=== PATIENT | male | born 1965 | race Caucasian/White ===

== ENCOUNTER 2024-03-13 17:30 | Inpatient (IN) | payer MEDICARE, OTHER ==
[~2024-03-13] VITALS: Ht 190.5 cm; Wt 77.4 kg
[~2024-03-13 17:30] MED LIST: AMLO5 PO
[2024-03-13 18:32] LABS: BASOPHILS ABSOLUTE AUTO 0.06 K/mm3 (0.00-0.23); BASOPHILS PERCENT AUTO 1 % (0-2); EOSINOPHILS PERCENT AUTO 2 % (0-6); Hematocrit 42.3 % (37.0-53.0); Hemoglobin 14.5 g/dL (13.5-17.5); IMMATURE GRAN ABSOLUTE AUTO 0.05 K/mm3 (0.00-0.10); IMMATURE GRAN PERCENT AUTO 1 % (0-1); LYMPHOCYTES ABSOLUTE AUTO 1.24 K/mm3 (0.84-5.20); LYMPHOCYTES PERCENT AUTO 13 % (21-46); MONOCYTES ABSOLUTE AUTO 0.65 K/mm3 (0.16-1.47); MONOCYTES PERCENT AUTO 7 % (4-13); Mean Corpuscular HGB 29.9 pg (26.0-34.0); Mean Corpuscular HGB Conc 34.3 g/dL (31.5-36.5); Mean Corpuscular Volume 87 fL (80-100); Mean Platelet Volume 8.9 fL (9.1-12.4); NEUTROPHILS PERCENT AUTO 77 % (41-73); Platelet Count 252 K/mm3 (150-400); RDW Coefficient Variation 13.7 % (11.7-14.2); RDW Standard Deviation 43.8 fL (35.1-46.3); Red Blood Cell Count 4.85 M/mm3 (4.30-5.90)
[2024-03-13 18:58] LABS: Albumin, Blood 3.5 g/dL (3.4-5.0); Albumin/Globulin Ratio 0.8 (0.8-1.8); Bilirubin, Total 0.4 mg/dL (0.1-1.0); Bun/Creatinine Ratio 31.9 (12.0-20.0); Calcium, Blood 9.1 mg/dL (8.5-10.1); Creatinine, Blood 1.35 mg/dL (0.60-1.20); Globulin, Blood 4.2 g/dL (2.2-4.0); Potassium, Blood 3.5 mmol/L (3.5-5.5); Total Protein, Blood 7.7 g/dL (6.4-8.2)
[2024-03-13] MEDS ORDERED: HydrALAZINE HCl 20 MG / ML 1ML Vial IV ONE (20:20)
[2024-03-13] MEDS ORDERED: Labetalol HCL 5 MG/ML 4ML Injection (Single Dose) IV PRN (21:25)
[2024-03-13] MEDS ORDERED: FLU VACC TS2024-25(6MOS UP)/PF 45 MCG/0.5 ML SYRINGE IM SCH (21:25)
[2024-03-13] MEDS ORDERED: HydrALAZINE HCl 20 MG / ML 1ML Vial IV PRN (21:30)
[2024-03-13] MEDS ORDERED: Aspirin 325 MG Tab PO ONE (22:00)
[2024-03-13] MEDS ORDERED: Lisinopril 5 MG Tab PO ONE (22:00)
[2024-03-13] MEDS ORDERED: AmLODIPine Besylate 5 MG Tab PO SCH (22:00)
[2024-03-13 22:42] VITALS: BP 146/108
[2024-03-13 23:14] VITALS: BP 156/122
[2024-03-14] VITALS (28 sets, daily range): BP systolic 145–186; BP diastolic 99–135
[2024-03-14 01:08] LABS: Source, Urine Clean Catch
[2024-03-14 01:23] LABS: Appearance, Urine Clear (Clear); Bilirubin, Urine Neg (Neg); Blood, Urine 2+ (Neg); Color, Urine Yellow (P-Yellow); Glucose Qualitative, Urine Neg (Neg); Ketones, Urine Neg (Neg); Leukocyte Esterase, Urine Neg (Neg); Nitrite, Urine Neg (Neg); Protein, Urine 3+ (Neg); Urobilinogen, Urine NORM (Normal)
[2024-03-14 01:36] LABS: U Amphetamine Screen Not Detected; U Barbituate Screen Not Detected; U Benzodiazapine Screen Not Detected; U Buprenorphine Screen Not Detected; U Cannabinoids Screen DETECTED; U Cocaine Screen Not Detected; U Methadone Screen Not Detected; U Methamphetamine Screen Not Detected; U Opiates Screen Not Detected; U Oxycodone Screen Not Detected; U Phencyclidine Screen Not Detected
[2024-03-14 01:52] LABS: Bacteria Not Seen /hpf; Squamous Epithelial Cells Not Seen /hpf (Few); White Blood Cells, Urine Not Seen /hpf (0-5)
[2024-03-14] MEDS ORDERED: AmLODIPine Besylate 5 MG Tab PO ONE (05:00)
[2024-03-14] MEDS ORDERED: Acetaminophen 325 MG TABLET PO PRN (05:15)
[2024-03-14 07:55] LABS: Bun/Creatinine Ratio 28.4 (12.0-20.0); Calcium, Blood 9.1 mg/dL (8.5-10.1); Creatinine, Blood 1.09 mg/dL (0.60-1.20); Potassium, Blood 3.2 mmol/L (3.5-5.5)
[2024-03-14] MEDS ORDERED: Lisinopril 5 MG Tab PO SCH (09:00)
[2024-03-14] MEDS ORDERED: Enoxaparin 40 MG/0.4 ML SYR SC SCH (09:00)
[2024-03-14] MEDS ORDERED: Potassium Chloride 20 MEQ TabCR PO ONE (09:00)
--- NOTE | 2024-03-14 09:50 | NUR ---
EVENT Called to room, pt having severe R chest pain, not radiating. No SOB. Briefly in trigeminy on tele. BP 135/101 L arm, 142/97 R arm, HR 90. SPO2 99, RR 18, T 97.9. Per CANDY POLISHER Linh, pt had been sitting comfortably at edge of bed, getting ready for a shower when she was called back in to room and pt was clutching chest. Dr Lindsay notified and at bedside.
[2024-03-14] MEDS ORDERED: Nitroglycerin 0.4 MG SUBL SL PRN (10:20)
[2024-03-14] MEDS ORDERED: Morphine Sulfate 4 MG/1 ML Injection IV PRN (10:20)
[2024-03-14] MEDS ORDERED: Labetalol HCL 5 MG/ML 4ML Injection (Single Dose) IV STA (11:24)
[2024-03-14] MEDS ORDERED: Esmolol HCL 2500mg/250ml Prema 250 ML IV PRN ×2 (11:30→12:00)
--- NOTE | 2024-03-14 11:32 | NUR ---
ASSUME CARE: I have assumed care of this patient in ICU 8. Report was received from Natalie HORNER. At this time he is alert and oriented and interacting with staff.
[2024-03-14] MEDS ORDERED: Esmolol HCL 10 MG/ML 10ML VIAL IV ONE (11:55)
[2024-03-14] MEDS ORDERED: Sodium Nitroprusside 50 MG in Dextrose 5% 250 ML IV SCH (12:05)
--- NOTE | 2024-03-14 12:28 | NUR ---
NITROPRUSSIDE Requested by pharmacy. Pharmacist, Bethany, discussing with providers. Echo at bedside.
[2024-03-14] MEDS ORDERED: NiCARdipine HCL 50 MG in NS 250 ML IV SCH (12:35)
[2024-03-14] MEDS ORDERED: Ondansetron HCl 2 MG / ML 2ML Vial IV PRN ×2 (12:40→13:00)
[2024-03-14] MEDS ORDERED: Ondansetron HCl 2 MG / ML 2ML Vial IV ONE (13:00)
--- NOTE | 2024-03-14 13:06 | NUR ---
TRANSPORT AT BEDSIDE
--- NOTE | 2024-03-14 13:28 | NUR ---
REPORT: Report given to EMS prior to discharge. Report then called to SIRI Roblero at [facility], all questions answered. Pt departed unit at 1321 alert and oriented x4, on room air, with esmolol and nicardipine infusing.
== END 2024-03-14 13:22 | disposition short-term general hospital (02) | DRG 280 ==
LOC: ER 17:30 → PCU 17:31 → ICUE 03-14 11:31
PROVIDERS: Nurse Practitioner Acute Care; Student in an Organized Health Care Education/Training Program; ADMIT Internal Medicine
DX: I16.1 Hypertensive emergency (principal); R07.89 Other chest pain; I71.019 Dissection of thoracic aorta, unspecified; I21.A1 Myocardial infarction type 2; N17.9 Acute kidney failure, unspecified; I49.3 Ventricular premature depolarization; I10 Essential (primary) hypertension; E87.6 Hypokalemia; F17.210 Nicotine dependence, cigarettes, uncomplicated; Z79.899 Other long term (current) drug therapy
CPT/HCPCS: 36415; 71045; 71275; 80048; 80053; 80320; 81001; 82947; 83735; 84484; 85025; 93005; 93010; 93306; 93356; 96372; 96374; 96375; 96376; 99284-25; 99285-25; A9270; G0378; J0360; J1650; J2405; J7050; Q9967